=== PATIENT | male | born 1985 | race Two or more races ===

== ENCOUNTER 2024-03-10 02:06 | Emergency (ER) | payer BC, SELFPAY ==
[2024-03-10 02:07] VITALS: BMI 40.4
[2024-03-10 02:27] VITALS: BP 116/73; PULSE 88; RESP 18; TEMP 36.4; O2SAT 97
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
[2024-03-10] MEDS: ONDANSETRON ODT 4 MG TABRAP PO (03:16)
[2024-03-10 04:10] VITALS: BP 120/70; PULSE 76; RESP 18; TEMP 36.7; O2SAT 98
== END 2024-03-10 04:11 | disposition home or self-care (01) ==
PROVIDERS: Emergency Provider Emergency Medicine; PCP Family Medicine
DX: A08.4 Viral intestinal infection, unspecified (principal)
CPT/HCPCS: 87400; 99283; Q0162

== ENCOUNTER 2024-07-26 20:49 | Emergency (ER) | payer OTHER, SELFPAY ==
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
--- NOTE | 2024-07-26 20:52 | XR_ITS ---
Examination: CT soft tissue neck, with intravenous contrast. 2-D coronal reconstructions. 2-D sagittal reconstructions. Date and time of exam :July 26, 2024 2149 hours INDICATIONS: Patient states meat stuck in the throat. CTDI: vol (mGy):15 DLP: (mGycm):409 Technique: 1.25 mm axial sections of the neck of the obtained. Coronal and sagittal reconstructions have been obtained. Intravenous contrast administered 60 cc Isovue-370. Low dose protocols were performed. One or more of the following dose reduction techniques were used; automated exposure control, adjustment of the mA and/or KV according to patient size, use of iterative reconstruction technique. Findings: Symmetrical oropharynx nasopharynx No pathologic cervical lymphadenopathy No opaque foreign body in the oropharyngeal airway The larynx appears normal Normal epiglottis No prevertebral soft tissue prominence Thyroid lobes are not enlarged IMPRESSION: No opaque foreign body is detected Suggest elective fluoroscopically guided esophagram follow-up
[2024-07-26 20:55] VITALS: BMI 41.7
[2024-07-26] MEDS: GLUCAGON INJ 1 MG VIAL IM (21:08)
[2024-07-26 21:11] VITALS: BP 172/129; PULSE 112; RESP 16; TEMP 36.9; O2SAT 95
[2024-07-26] MEDS: SODIUM CHLORIDE 0.9% 1000 ML 1,000 ML 999 ML IV (22:03)
[2024-07-26] MEDS: ONDANSETRON INJ 2 MG/ML INJ 2 ML 4 MG IVP (22:03)
[2024-07-26 22:12] LABS: Basophils % (Auto) 1 % (0-2.5); Eosinophils # (Auto) 0.4 Thou/mm3 (0.0-0.5); Eosinophils % (Auto) 6 % (0-10); Hematocrit 42.7 % (41.0-53.0); Hemoglobin 15.3 g/dL (13.5-16.0); Immature Granulocytes % (Auto) 1 % (0-0); Immature Granulocytes Auto 0.04 Thou/mm3 (0.00-0.00); Lymphocytes # (Auto) 2.3 Thou/mm3 (1.0-4.8); Lymphocytes % (Auto) 36 % (10-50); Mean Corpuscular HGB Conc 35.8 g/dl (31.0-37.0); Mean Corpuscular Hemoglobin 32.3 pg (25.0-35.0); Mean Corpuscular Volume 90 fL (80-100); Monocytes # (Auto) 0.5 Thou/mm3 (0.0-0.8); Monocytes % (Auto) 7 % (0-12); Neutrophils # (Auto) 3.1 Thou/mm3 (1.8-7.7); Neutrophils % (Auto) 49 % (37-80); Nucleated Red Blood Cell % 0 /100 WBC (0); Platelet Count 209 Thou/mm3 (140-440); RDW Standard Deviation 43.6 fL (35.1-43.9); Red Blood Count 4.74 Miln/mm3 (4.50-5.90); White Blood Count 6.3 Thou/mm3 (3.8-10.6)
[2024-07-26 22:27] LABS: Partial Thromboplastin Time 25.9 Seconds (22.0-36.0); Prothrombin Time 11.2 Seconds (9.0-12.2)
[2024-07-26 22:29] LABS: Alanine Aminotransferase 92 U/L (10-49); Albumin, Serum 4.8 gm/dL (3.5-5.0); Albumin/Globulin Ratio 1.8 (1.2-2.2); Alkaline Phosphatase 92 U/L (46-116); Anion Gap 13 (7-16); BUN/Creatinine Ratio 10 Ratio (12-20); Bilirubin,Total 0.5 mg/dL (0.3-1.2); Blood Urea Nitrogen 8 mg/dL (9-23); Calcium 9.6 mg/dL (8.3-10.6); Calcium (Corrected) 9.6 mg/dL (8.5-10.1); Carbon Dioxide 22.1 mMol/L (20.0-31.0); Chloride 106 mMol/L (98-107); Creatinine (Component) 0.8 mg/dL (0.6-1.3); Estimated Creatinine Clearance 195.5 mL/min (>60); Globulin 2.6 gm/dL (2.3-3.5); Glucose 176 mg/dL (74-106); Magnesium 1.9 mg/dL (1.6-2.6); Osmolality,Calculated 283 (275-295); Potassium 3.3 mMol/L (3.4-5.1); Sodium 141 mMol/L (136-145); Total Protein 7.4 gm/dL (5.7-8.2); eGFR > 60 See Note
[2024-07-26] MEDS: GLUCAGON INJ 1 MG VIAL IVP (22:53)
[2024-07-26 23:38] VITALS: BP 188/107
[2024-07-26] MEDS: POTASSIUM CHLORIDE 10% 20 MEQ/15 ML UDC 40 MEQ PO (23:38)
[2024-07-26 23:40] VITALS: BP 188/107; PULSE 112
[2024-07-26] MEDS: METOPROLOL TARTRATE 25 MG TABLET 100 MG PO (23:40)
[2024-07-26 23:42] VITALS: BP 188/107; PULSE 112
[2024-07-26] MEDS: cloNIDine HCL 0.1 MG TABLET PO (23:42)
[2024-07-27 00:09] VITALS: BP 152/79; PULSE 90; RESP 16; TEMP 36.9; O2SAT 98
== END 2024-07-27 00:14 | disposition home or self-care (01) ==
PROVIDERS: Emergency Provider Emergency Medicine; PCP Family Medicine
DX: T17.228A Food in pharynx causing other injury, initial encounter (principal); W44.F3XA Food entering into or through a natural orifice, initial encounter
CPT/HCPCS: 36415; 70491; 80053; 83735; 85025; 85610; 85730; 96361; 96372; 96374; 96375; 99285; A4649; J1611; J2405; J7030; Q9967; A9270

== ENCOUNTER 2024-12-06 12:51 | Emergency (ER) | payer BC, SELFPAY ==
[2024-12-06 12:52] VITALS: BMI 42.3
[2024-12-06 13:41] VITALS: BP 143/85; PULSE 109; RESP 18; TEMP 37; O2SAT 95
[2024-12-06] MEDS: METOCLOPRAMIDE INJ 5 MG/ML VIAL 2 ML 10 MG IM (14:03)
[2024-12-06] MEDS: GLUCAGON INJ 1 MG VIAL IM (14:31)
--- NOTE | 2024-12-06 14:59 | PD.EDRME ---
Rapid Medical Screening Exam [facility] Arrival date/time: 12/06/24 12:51 This is a 39-year-old male that comes into the emergency room with complaint of having food stuck in his throat. Patient states this has happened before. Patient previously clear and was given glucagon and was able to pass the food that was stopped. Upon initial assessment patient having no trouble breathing. Patient tries to swallow liquids but was not able to swallow any liquids and would vomited up. Patient was given a dose of Reglan 10 mg IM and then I waited approximately 30 minutes and then gave him a dose of glucagon IM. Patient given some soda to see if he can swallow and still not able to swallow. I discussed case with Dr. Gr who will assume patient care. I have greeted and performed a focused initial assessment of this patient. Initial appropriate labs ordered at this time. A comprehensive ED assessment and evaluation of the patient and analysis of all test and completion of medical decision making process will be conducted by additional ED provider. Chief Complaint: Nausea/Vomiting/Diarrhea Time Seen by Provider: 12/06/24 13:40 Vital signs: Vital Signs Temperature 98.6 F 12/06/24 13:41 Pulse Rate 109 H 12/06/24 13:41 Respiratory Rate 18 12/06/24 13:41 Blood Pressure 143/85 H 12/06/24 13:41 Pulse Oximetry (%) 95 12/06/24 13:41 Oxygen Delivery Method Room Air 12/06/24 13:41
--- NOTE | 2024-12-06 15:47 | PD.EDNV ---
Nausea/Vomit./Diarrhea-RME/HPI General Chief complaint: Nausea/Vomiting/Diarrhea Stated complaint: N/V AFTER EATING PORK MEAT Time Seen by Provider: 12/06/24 13:40 Arrival date/time: 12/06/24 12:51 RME / HPI RME / HPI Narrative: 12/06/24 12:51 This is a 39-year-old male that comes into the emergency room with complaint of having food stuck in his throat. Patient states this has happened before. Patient previously clear and was given glucagon and was able to pass the food that was stopped. Upon initial assessment patient having no trouble breathing. Patient tries to swallow liquids but was not able to swallow any liquids and would vomited up. Patient was given a dose of Reglan 10 mg IM and then I waited approximately 30 minutes and then gave him a dose of glucagon IM. Patient given some soda to see if he can swallow and still not able to swallow. I discussed case with Dr. Gr who will assume patient care. I have greeted and performed a focused initial assessment of this patient. Initial appropriate labs ordered at this time. A comprehensive ED assessment and evaluation of the patient and analysis of all test and completion of medical decision making process will be conducted by additional ED provider. DR. GR MAIN ED EVALUATION: 39-year-old male with no significant past medical history presents to the Emergency Department for persistent discomfort and vomiting after eating. The patient reports that around 10 AM, he ate pozole with shredded pork and felt as though the food ?was getting stuck.? He attempted to drink fluids but was unable to swallow, followed by vomiting. He describes a sensation of food or liquid not passing down and lingering discomfort in the throat area. Symptoms have persisted despite medication given here. The patient reports experiencing similar episodes 3 times in the past, but has never undergone esophageal dilation or endoscopic evaluation. Denies fever, abdominal pain, shortness of breath, or chest pain. Related Data Home Medications ?Medication ?Instructions ?Recorded ?Confirmed hydrocodone 5 mg-acetaminophen 325 1 tab PO Q6H PRN Pain 04/18/17 04/18/17 mg tablet ([place]) Previous Rx's ?Medication ?Instructions ?Recorded sulfamethoxazole 800 1 tab PO BID #14 tabs 10/17/18 mg-trimethoprim 160 mg tablet ondansetron 4 mg disintegrating 4 mg PO Q8H PRN nausea and 03/10/24 tablet vomiting #7 tabs metoprolol succinate 100 mg 100 mg PO QDAY #30 ea 07/26/24 capsule sprinkle, ext. 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 ED Exam Narrative Physical exam: GENERAL APPEARANCE: alert and oriented x 4, well-developed, well-nourished, mildly uncomfortable VITALS: All vitals were reviewed and the pulse ox is 95% on room air, which is normal according to my interpretation. HEENT: Normocephalic, atraumatic; pupils equal, round, reactive to light; EOMI; mucous membranes pink, moist; oropharynx clear NECK: Supple LUNGS: CTABL; no wheezes, no rales, no rhonchi HEART: Regular rate, regular rhythm; normal S1, S2; no murmurs ABDOMEN: non distended; normal BS; soft, no tenderness, no guarding, no rebound; no masses, no organomegaly, no hernia BACK: no CVA tenderness EXTREMITIES: atraumatic; no edema NEUROLOGIC: awake; alert and oriented x4; cranial nerves II-XII grossly intact; no focal sensory or motor deficits PSYCHIATRIC: appropriate mood and affect SKIN: warm, dry, normal color; no rashes Course Quality Measures none Orders Category Date Time Status Insert IV NOW Care 12/06/24 16:11 Active Glucagon Inj Med 12/06/24 13:55 Discontinued 1 mg IM X1 ONE Glucagon Inj Med 12/06/24 16:03 Discontinued 1 mg IVP X1 ONE Metoclopramide Inj [Reglan Inj] Med 12/06/24 13:57 Discontinued 10 mg IM X1 ONE Metoclopramide [Reglan] Med 12/06/24 13:55 Discontinued 10 mg PO X1 ONE Vital Signs Vital signs: Vital Signs Temperature 98.6 F 12/06/24 13:41 Pulse Rate 109 H 12/06/24 13:41 Respiratory Rate 18 12/06/24 13:41 Blood Pressure 143/85 H 12/06/24 13:41 Pulse Oximetry (%) 95 12/06/24 13:41 Oxygen Delivery Method Room Air 12/06/24 13:41 Nausea/Vomiting/Diarrhea MDM Narrative MDM Narrative:: I, Niecy Vaughn, am scribing for and in the presence of Dr. Gr. At 1700 hours, patient was given a soda and the food passed. He mentioned to the nurse last time a soda helped and it did again this time. Symptoms are resolved and no need for admission. Patient data External records reviewed:: [facility] previous records Clinical information provided by:: patient Social determinants that could affect healthcare access:: none Patient has the following chronic illnesses:: Denies any PMHx, surgeries, daily medications, or known allergies. Family history is significant for diabetes, paternal grandmother diabetic. How is presenting disease/condition affected by chronic disease/condition?: no chronic disease Evaluation data The following diagnostics were reviewed and interpreted by me:: other (specify) (none) Lab and/or radiology exams considered but not ordered:: none Interpretation Summary: n/a Medications / Prescriptions Medications / Prescriptions considered but not ordered:: none Medication administrations:: Medication Administration History Discontinued Medications Glucagon (Glucagon Inj 1 Mg Vial) 1 mg IM X1 ONE Stop: 12/06/24 13:56 Last Admin: 12/06/24 14:31 Dose: 1 mg Documented By: OA Glucagon (Glucagon Inj 1 Mg Vial) 1 mg IVP X1 ONE Stop: 12/06/24 16:04 Last Admin: 12/06/24 16:12 Dose: 1 mg Documented By: BD Metoclopramide HCl (Metoclopramide 5 Mg Tablet) 10 mg PO X1 ONE Stop: 12/06/24 13:56 Last Admin: 12/06/24 14:09 Dose: Not Given Documented By: GM Non-Admin Reason: Discontinued Metoclopramide HCl (Metoclopramide Inj 5 Mg/Ml Vial 2 Ml) 10 mg IM X1 ONE; Protocol Stop: 12/06/24 13:58 Last Admin: 12/06/24 14:03 Dose: 10 mg Documented By: OA see above Consultations Consultation(s) initiated? (list below): Yes Consultation #1 (Physician, Specialty, Details): Discussed test HPI, PMHx, lab, radiology results and/or management with Dr. Braswell. Will consult. Time: 16:40 Diagnosis Nausea Differential Diagnosis: other (Esophageal food impaction, esophageal stricture, and eosinophilic esophagitis.) Most likely diagnosis given after review of the tests above:: Esophageal obstruction due to food impaction Admission Indicated Admission indicated?: not indicated Admission Request Was there a request for admission?: No Disposition Plan Disposition Plan: Discharge Discharge Attestation Discharge Attestation: The patient and all family members were given an opportunity to ask questions and understood the discharge instructions. Discharge instructions specifically effects, indications for sooner follow up or return to the emergency department, and the expected course of current diagnosis. Patient condition: Stable Discharge Plan Plan Patient Disposition: HOME (Self Care) Prescriptions/Referrals Prescriptions/Med Rec: No Action sulfamethoxazole-trimethoprim 800-160 mg Tablet 1 tab PO BID Qty: 14 0RF hydrocodone-acetaminophen [[place]] 5-325 mg Tablet 1 tab PO Q6H PRN (Reason: Pain) ondansetron 4 mg tablet,disintegrating 4 mg PO Q8H PRN (Reason: nausea and vomiting) Qty: 7 0RF metoprolol succinate 100 mg capsule,sprinkle,ER 24hr 100 mg PO QDAY Qty: 30 1RF Referrals: Wilbert Adair MD [Primary Care Provider, Family Practice] - In 1 week Marjan Braswell MD [Physician, Gastroenterology] Problem List Clinical Impression: Esophageal obstruction due to food impaction Patient/Caregiver Discharge Instructions Education Materials: ED Foreign Body Esophageal Rslv Print Language: Estonian Stand Alone Forms: Mehreen Award Info., Patient Portal Info Letter
[2024-12-06 16:00] VITALS: BP 145/88; PULSE 103; RESP 19; TEMP 37.1; O2SAT 95
[2024-12-06] MEDS: GLUCAGON INJ 1 MG VIAL IVP (16:12)
[2024-12-06 17:44] VITALS: BP 139/82; PULSE 104; RESP 16; O2SAT 95
== END 2024-12-06 17:45 | disposition home or self-care (01) ==
PROVIDERS: Emergency Provider Emergency Medicine; PCP Family Medicine
DX: T18.128A Food in esophagus causing other injury, initial encounter (principal); W44.F3XA Food entering into or through a natural orifice, initial encounter
CPT/HCPCS: 96372; 96374; 99283; J1611; J2765